=== PATIENT | male | born 1995 | race Caucasian/White ===

== ENCOUNTER 2024-06-26 16:25 | Emergency (ER) | payer BC, SELFPAY ==
[2024-06-26 16:27] VITALS: BP 152/104
[2024-06-26 16:45] LABS: % Basophils 0.4 % (0-2); % Eosinophils 0.3 % (0-6); % Immature Granulocytes 0.3 % (0-0.5); % Lymphocytes 13.8 % (20.5-51.1); % Monocytes 4.5 % (1.7-9.3); % Neutrophils 80.7 % (42.2-75.2); Absolute Lymphocytes 1.5 10^3/uL (1.2-3.4); Absolute Monocytes 0.5 10^3/uL (0.1-0.6); Absolute Neutrophils 8.6 10^3/uL (1.4-6.5); Hematocrit 46.6 % (39.0-52.0); Hemoglobin 16.5 g/dL (13.0-18.0); Mean Corp Hgb Conc. 35.4 g/dL (33.0-37.0); Mean Corpuscular Volume 84.7 fL (80.0-94.0); Nucleated Red Blood Cells % 0 % (-); Platelet Count 246 10^3/uL (130-400); Red Cell Dist. Width 12.1 % (11.5-14.5); White Blood Cell Count 10.7 10^3/uL (4.8-10.8)
[2024-06-26 17:03] LABS: ALT (SGPT) 57 U/L (0-50); AST (SGOT) 38 U/L (17-59); Albumin 5.1 g/dl (3.5-5.0); Alkaline Phosphatase 55 U/L (38-126); Blood Urea Nitrogen 12 mg/dl (9-20); Calcium 10.2 mg/dl (8.4-10.2); Carbon Dioxide 26 mmol/L (22-30); Chloride 103 mmol/L (98-107); Glucose 127 mg/dl (70-99); Potassium 3.7 mmol/L (3.5-5.1); Sodium 139 mmol/L (135-145); Total Bilirubin 0.8 mg/dl (0.2-1.3); Total Protein 8.1 g/dl (6.3-8.2); eGFR > 60.00
[2024-06-26 17:09] LABS: Troponin I < 0.012 ng/ml
[2024-06-26 18:00] VITALS: BP 130/87
[2024-06-26 19:00] VITALS: BP 135/99
[2024-06-26 19:42] LABS: Troponin I < 0.012 ng/ml
--- NOTE | 2024-06-26 21:08 | ED.GENMED ---
History of Present Illness
General
Chief Complaint: Chest Pain
Source: patient
Exam Limitations: none
Time Seen by Provider: 06/26/24 18:23
History of Present Illness
History of Present Illness:
28-year-old male presents with the onset of chest discomfort earlier this afternoon. He was sitting enjoying [place] gathering with his family developed tightness in his chest and racing heart. He felt very anxious. The pain was not pleuritic.
It was not made worse with motion. He states now since waiting to be seen his pain is resolved. He is healthy otherwise. Does not take any medication. No other points at this time
Phy Exam
Physical Exam
Physical Exam:
General: Well-appearing male no acute respiratory distress
HEENT: Normocephalic atraumatic
Heart: Regular rate and rhythm no murmurs
Lungs: Clear no wheeze
Extremities: No cyanosis or edema
Scores
Heart Score for Chest Pain Patients
STEMI patient?: No
History: Slightly or Non-Suspicious
ECG: Normal
Age: </= 45 years
Risk Factors: No Risk Factors
Troponin: </= Normal Limit
Heart Score for Chest Pain Patients: 0
Heart Score Risk: 2.5% MACE over next 6 weeks
Course
Orders/Labs/Results
Orders:
Orders
06/26/24 16:26
EKG [Electrocardiogram (*1)] Urgent
Reason for Study: Chest Pain
EKG- Treatment ONCE
06/26/24 16:38
Complete Blood Count/With Diff Urgent
Comprehensive Metabolic Panel Urgent
Troponin I Urgent
06/26/24 18:43
CR Chest - 2 Views Urgent
Comment:
Reason For Exam: chest pain
06/26/24 19:13
Troponin I Urgent
Abnormal Lab Results
06/26/24
16:38
Absolute Neuts (auto) 8.6 H 10^3/uL
(1.4-6.5)
Neutrophils % 80.7 H %
(42.2-75.2)
Lymphocytes % 13.8 L %
(20.5-51.1)
Glucose 127 H mg/dl
(70-99)
ALT 57 H U/L
(0-50)
Albumin 5.1 H g/dl
(3.5-5.0)
06/26/24 16:38
06/26/24 16:38
Vital Signs
Initial and Last Documented VS:
Initial Vital Signs
Temp Pulse Resp BP Pulse Ox
98 F 106 20 152/104 100
06/26/24 16:27 06/26/24 16:27 06/26/24 16:27 06/26/24 16:27 06/26/24 16:27
Last Documented Vital Signs
Temp Pulse Resp BP Pulse Ox
98 F 99 16 130/87 95
06/26/24 16:27 06/26/24 18:28 06/26/24 18:28 06/26/24 18:00 06/26/24 18:28
MDM/Problems Addressed
Differential Diagnosis Includes:
Chest tightness anxiety palpitations. Consider ACS versus arrhythmia versus anxiety as differential.
Initial and repeat troponin both undetectable. EKG shows initially sinus tachycardia however he has slowed down on his own he is now in normal sinus rhythm. There is no ischemic changes. Do not suspect PE or dissection given resolution symptoms
send chest x-ray is clear. No pneumothorax.
Given age and otherwise healthy status suspect possible anxiety as a main contributor towards his discomfort. Stable for discharge
*Critical Care Note
Total Time (30-74mins, 75-104mins- exclusive of procedures): Not Applicable
ED Attending Note
-
Portions of this chart may have been created with voice recognition software.� Occasional wrong word or��sound alike� substitutions may have occurred due to the inherent limitations of voice recognition software.
Discharge Plan
Departure
Patient Disposition: Home (Routine Discharge)
Date of Disposition: 06/26/24
Time of Disposition: 21:11
Patient with high blood pressure during this ER visit?: No
Discharge Problem:
Chest pain
Instructions: Chest Pain PCP Follow Up
Referrals:
UNKNOWN - PT DOES,NOT KNOW [Family Provider] -
Activity Restrictions/Additional Instructions:
Please return here for worsening symptoms. Follow-up with your doctor otherwise
Interventions
Interventions:
*Risk Screen - Suicide Last Done: 06/26/24 16:27
*General Assessment Last Done: 06/26/24 17:20
*Neglect/Abuse Screening Last Done: 06/26/24 16:27
ED- Fall Risk Assessment Last Done: 06/26/24 17:20
*ED COVID-19 Vaccine History Last Done: 06/26/24 17:20
ED- Cardiac Assessment Last Done: 06/26/24 17:20
Discharge Date and Time
Print Language: SUDANESE
== END 2024-06-26 21:22 | disposition home or self-care (01) ==
LOC: EMR 16:25
PROVIDERS: Physician Assistant; EMERGENCY PHYSICIAN Emergency Medicine
DX: R07.89 Other chest pain (principal); R00.0 Tachycardia, unspecified; F41.9 Anxiety disorder, unspecified
CPT/HCPCS: 99283; 71046; 80053; 84484; 85025; 93005